=== PATIENT | male | born 1995 | race Caucasian/White ===

== ENCOUNTER 2018-11-07 01:14 | Emergency (ER) | payer OTHER, BC ==
[~2018-11-07 01:14] MED LIST: BENZ200C15 PO; PROM5SYR PO
--- NOTE | 2018-11-07 01:28 | ER Report ---
History and Physical Time Seen By MD: 01:28 Hx. of Stated Complaint: was walking back from the bathroom, felt like the top part of his leg went one way and the bottom half went in the opposite direction. pt fell to the floor HPI/ROS CHIEF COMPLAINT: knee pain and fall HISTORY OF PRESENT ILLNESS: This is a 23 year old male. He fell tonight while up walking going to the bathroom. He has chronic pain in the left leg and knee, currently undergoing evaluation by neurology. Has had orthopedic surgery evaluations as well. Unable to tell why the pain. Chronic pain is diffuse with associated hypersensitivity and leg tremors alot as well. Normal sensation now. Will ocassionally have numbness in leg that sounds like it is associated with increased activity levels, but also sounds a little unpredictable. He is getting some MRI scans and will follow-up with neurology. Tonight the leg just gave way at the knee. He reports feeling like his upper leg went one way and the lower leg went the other way. He has associated diffuse pain that is worse than normal as well. Feels unstable and worries about a meniscus or ligament injury. Neurology has him on Nortryptyline 25mg at bedtime and during the daytime he alternates Tylenol and Ibuprofen to help with pain, but minimally successful. Allergies: Coded Allergies: No Known Drug Allergies (Unverified , 06/02/16) Home Meds Active Scripts Hydrocodone Bit/Acetaminophen (HYDROCODON-ACETAMINOPHEN 5-325) 1 Each Tablet, 1 EACH PO Q4H PRN for PAIN, #12 TAB 0 Refills Prov:KEIKO PRESTON MD 11/07/18 Cyclobenzaprine Hcl (CYCLOBENZAPRINE HCL) 10 Mg Tablet, 10 MG PO Q8H PRN for MUSCLE SPASMS, #20 TAB 0 Refills Prov:KEIKO PRESTON MD 11/07/18 Promethazine HCl/Codeine (Prometh-Codein 6.25-10 mg/5 ml) 5 Ml Syrup, 1 TSP PO QHS PRN for COUGH, #120 ML Prov:ELODIA ARAUJO 06/02/16 Benzonatate (BENZONATATE) 200 Mg Capsule, 200 MG PO TID PRN for COUGH, #15 CAP Prov:ELODIA ARAUJO 06/02/16 Reviewed Nurses Notes: Yes Hx Smoking: Yes (hookah) Smoking Status: Current: Some Days Smoker Hx Substance Use Disorder: No Hx Alcohol Use: Yes (rare) Constitutional Vital Sign - Last 24 Hours 11/07/18 11/07/18 11/07/18 11/07/18 01:19 01:20 01:30 01:44 Temp 97.9 Pulse 110 107 Resp 20 B/P (MAP) 144/89 144/89 (107) 133/108 (116) Pulse Ox 100 100 O2 Delivery Room Air 11/07/18 11/07/18 11/07/18 02:00 02:30 02:44 Pulse 90 B/P (MAP) 109/96 (100) 116/78 (91) Pulse Ox 98 Physical Exam General Appearance: Alert, in distress because of acute pain now with injury on top of chronic pain that has been difficult to identify and treat. ENT: Moist mucous membranes. Respiratory: Breathing easily. Cardiac: regular rate and rhythm. Normal DP and PT pulses and capillary refill. Neuro: Normal sensation in the leg at this time. Musculoskeletal: Diffuse pain over patella and patellar borders, medial joint line, and posterior knee. Has full active and passive range of motion, but with pain. No crepitus or clicking. Has guarding and some swelling, but no laxity noted on Martha or medial or lateral stress. Diffuse pain in the hamstrings and the quads. Less so in calf. Pain in the posterior of the knee seems to be the worse area or pain. Skin: No rashes or lesions. No redness or warmth of the skin. No breakdown, abrasions or lacerations. DIFFERENTIAL DIAGNOSIS: After history and physical exam differential diagnosis was considered for a patient with chronic knee pain that sounds more nerve and neurologic and character but now with acute injury where the knee gave way. We'll need to get x-rays and look for acute injury. Medical Decision Making EKG/Imaging Imaging INDICATION: Fall, heard knee pop. EXAM DATE: 11/07/2018 1:54 AM COMPARISON: None. FINDINGS: 4 views left knee. Mineralization is normal. Small ossified body overlies the posterior aspect of the joint space on the lateral view. Overall alignment is normal. Soft tissues are unremarkable. IMPRESSION: Small posterior ossified body at the left knee favored to represent a fabella. Small avulsion fracture fragment not excluded. Correlate with point tenderness. Report Dictated By: Sunil Parker MD at 11/07/2018 2:25 AM ED Course/Re-evaluation ED Course I provided a dose of Flexeril and Lortab for the patient to help with pain. X- rays were obtained and this does show possible a avulsion fracture versus sesamoid bone in the posterior aspect of the knee, and based on the patient's severe pain throughout the knee but worse in the posterior aspect, we will place the patient in a knee immobilizer, crutches, pain management, and have him follow-up with orthopedic surgery. He has a knee immobilizer and crutches at home. He brought a hinged knee brace to the ER with him although it will not walk out and he will use this until he gets home and apply the knee immobilizer. A prescription for Lortab and Flexeril given for home use and he will also use ibuprofen for pain. He will call orthopedic surgery on Friday morning to schedule an appointment with them. Off work until reevaluation this week by orthopedic surgery or based on further neuro evaluation, but work excuse given only for the next week. Decision to Disposition Date: November 07, 2018 Decision to Disposition Time: 02:56 Depart Departure Latest Vital Signs Vital Signs Date Time Temp Pulse Resp B/P (MAP) Pulse Ox O2 Delivery O2 Flow Rate FiO2 11/07/18 02:44 90 98 11/07/18 02:30 116/78 (91) 11/07/18 01:19 97.9 20 Room Air Impression: Primary Impression: Knee joint pain Additional Impressions: Fall Avulsion fracture Condition: Improved Disposition: HOME OR SELF-CARE New Scripts Hydrocodone Bit/Acetaminophen (HYDROCODON-ACETAMINOPHEN 5-325) 1 Each Tablet 1 EACH PO Q4H PRN for PAIN, #12 TAB 0 Refills Prov: KEIKO PRESTON MD 11/07/18 Cyclobenzaprine Hcl (CYCLOBENZAPRINE HCL) 10 Mg Tablet 10 MG PO Q8H PRN for MUSCLE SPASMS, #20 TAB 0 Refills Prov: KEIKO PRESTON MD 11/07/18 Patient Instructions: Knee Immobilizer (ED), Knee Pain (ED) Additional Instructions: In addition to your chronic knee pain that you are seeing neurology for, there may have been an acute injury tonight with your fall. You will need to follow up with orthopedic surgery to have this further evaluated. In the meantime, please use a knee immobilizer and crutches. Lortab 5/325, one every 4 hours as needed for pain. Cyclobenzaprine 10 mg, one every 8 hours as needed for pain or spasm. Keep the leg elevated and apply ice every 1-2 hours while awake to help with pain and swelling. Call [facility] on Friday to schedule a follow-up appointment with them, let them know you were in the ER tonight. Follow-up with neurology for further workup for your chronic knee pain as planned. Off work this week. Further work releases will need to be done by orthopedic surgery or neurology after this time. Problem Qualifiers Primary Impression: Knee joint pain Laterality: left Qualified Codes: M25.562 - Pain in left knee Additional Impressions: Fall Encounter type: initial encounter Qualified Codes: W19.XXXA - Unspecified fall, initial encounter KEIKO PRESTON MD November 07, 2018 01:28
[2018-11-07] MEDS ORDERED: APAP/HYDROCODONE 325/5 TAB PO ONE (01:55)
[2018-11-07] MEDS ORDERED: CYCLOBENZAPRINE HCL 10 MG TAB PO ONE (01:55)
[2018-11-07 02:30] VITALS: BP 116/78
--- NOTE | 2018-11-07 02:32 | RADIOLOGY IMAGING REPORT ---
FACILITY: [facility] PATIENT NAME: Nicolás Palacios : 1995 MR: [id number] V: [id number] EXAM DATE: ORDERING PHYSICIAN: KEIKO PRESTON TECHNOLOGIST: Location: [facility] [place] Patient: Nicolás Palacios : 1995 Visit/Account:[id number] Date of Sevice: 11/07/2018 INDICATION: Fall, heard knee pop. EXAM DATE: 11/07/2018 1:54 AM COMPARISON: None. FINDINGS: 4 views left knee. Mineralization is normal. Small ossified body overlies the posterior aspect of the joint space on the lateral view. Overall alignment is normal. Soft tissues are unremarkable. IMPRESSION: Small posterior ossified body at the left knee favored to represent a fabella. Small av ulsion fracture fragment not excluded. Correlate with point tenderness. Report Dictated By: Sunil Parker MD at 11/07/2018 2:25 AM Report E-Signed By: Sunil Parker MD at 11/07/2018 2:28 AM WSN:[id number]
[2018-11-07] MEDS ORDERED: CYCLOBENZAPRINE HCL 10 MG TH PO ONE (02:55)
[2018-11-07] MEDS ORDERED: ACET/HYDROC 5/325MG TH ER ONLY 2 TAB/BOTTLE PO ONE (02:55)
[2018-11-07] MEDS ORDERED: LOR5/325 PO (03:00)
[2018-11-07] MEDS ORDERED: CYCL10TA29 PO (03:00)
== END 2018-11-07 03:25 | disposition home or self-care (01) ==
LOC: ER 01:30
DX: M25.562 Pain in left knee (principal)
CPT/HCPCS: 73564; 99283